=== PATIENT | male | born 2000 | race African-American/Black ===

== ENCOUNTER 2022-09-07 05:42 | Emergency (ER) | payer OTHER, SELFPAY ==
[2022-09-07 05:49] VITALS: BP 130/75; PULSE 89; RESP 16; TEMP 37.3; O2SAT 99; BMI 25.0
--- NOTE | 2022-09-07 06:08 | ED_ITS ---
HPI - URI/Sore Throat General Chief Complaint: Upper Respiratory Symptoms Stated Complaint: sore throat, chills, headaches Time Seen by Provider: 09/07/22 06:00 Source: patient Mode of arrival: Ambulatory History of Present Illness HPI Narrative: Patient is a healthy 22-year-old male who presents with for 5 days of throat pain and fevers. His friend was sick with similar symptoms but his does not seem to be going away. Minimal cough. No abdominal pain nausea or vomiting. It hurts to swallow. He has been taking Aleve and Tylenol. Related Data Previous Rx's Medication Instructions Recorded amoxicillin 500 mg capsule 500 mg PO BID #20 caps 09/07/22 Allergies Allergy/AdvReac Type Severity Reaction Status Date / Time No Known Drug Allergies Allergy Verified 09/07/22 05:59 Review of Systems Review of Systems ROS Unobtainable: All systems reviewed & are unremarkable except as noted in HPI and below Patient History Social History Smoking Status: Never smoker Smoking Status: Never smoker alcohol intake frequency: a few times a month Substance Use Type: does not use Exam Initial Vital Signs Initial Vital Signs: Vital Signs Temperature 99.2 F 09/07/22 05:49 Pulse Rate 89 09/07/22 05:49 Respiratory Rate 16 09/07/22 05:49 Blood Pressure 130/75 09/07/22 05:49 Pulse Oximetry 99 09/07/22 05:49 Oxygen Delivery Method 09/07/22 05:49 GENERAL: Alert 22-year-old male appears to not feel well and in no acute distress. HEENT: Head atraumatic,EOMI, pupils reactive, face symmetric, moist mucous membranes PHARYNX: Erythematous with exudative tonsils no significant uvula swelling or deviation no cervical lymphadenopathy CARDIOVASCULAR: Regular rate and rhythm without murmurs, rubs or gallops. RESPIRATORY: Breath sounds equal bilaterally, no wheezes rales or rhonchi. ABDOMEN: Soft, nontender. Normoactive bowel sounds all 4 quadrants. No guarding or rebound. EXTREMITIES: Normal range of motion, no clubbing or edema. Neurovascularly intact NEUROLOGICAL: Alert and oriented x4. SKIN: Warm, dry, no laceration, no petechiae, no rashes or lesions. Course Orders Ordered: ED Orders 01/26/23 06:05 Covid-19 + FLU A/B + RSV - PCR Stat 09/07/22 06:10 Throat Culture Stat Discontinued Medications Amoxicillin (Amoxicillin 250 Mg Prepack) 1 bottle MISC SEEINSTR ONE Stop: 09/07/22 06:36 Ketorolac Tromethamine (Ketorolac 30 Mg/Ml Vial) 30 mg IM NOW ONE Stop: 09/07/22 06:16 Last Admin: 09/07/22 06:24 Dose: 30 mg Vital Signs Vital signs: Vital Signs - 8 hr 09/07/22 05:49 Temperature 99.2 F Pulse Rate 89 Respiratory Rate 16 Blood Pressure 130/75 Pulse Oximetry 99 Oxygen Delivery Method Room Air MDM - URI/Sore Throat Lab Data Labs: Lab Results 09/07/22 Range/Units 06:05 SARS-CoV-2 (PCR) Negative (Negative) Influenza A (RT-PCR) Flu a negative (NEGATIVE) Influenza B (RT-PCR) Flu b negative (NEGATIVE) RSV (PCR) Negative (Negative) Point of Care Testing Rapid Strep A Positive MDM Narrative Medical decision making narrative: Patient is a healthy 22-year-old male with ongoing throat pain with exudative tonsils. His rapid strep is negative. No evidence of peritonsillar abscess or retropharyngeal abscess. No airway compromise. He is not tachycardic or hypotensive or other signs of sepsis. Low-grade fever of 99.2. Viral panel negative. He is given Toradol in the ED for pain. MDM * differential diagnosis includes but not limited to: Struck her right is virus abscess Connor abscess * Prior records reviewed: no * My lab interpretation: Positive strep * My imaging interpretation: None * Clinical Decision Rules/Scores evaluated: None * Independent discussions with: None * Social Considerations: none * Shared Decision Making: With patient *Disposition: see below, along with detailed discharge instructions that have been reviewed with patient as well as indications for ED re-evaluation and add itional outpatient follow up Discharge Plan Departure Patient Disposition: Home Clinical Impression: Strep pharyngitis Instructions: Strep Throat Activity Restrictions/Additional Instructions: *You have been diagnosed with strep throat *What to do: At this time be sure to stay hydrated drink plenty of fluids including water and Gatorade popsicles. You should start feeling better with antibiotics in about 2-3 days *Continue to take medications as directed Amoxicillin 500 mg twice a day for 10 days *Follow up with your primary care provider in 2-3 days or call [phone] *Return to ER if you should have inability to swallow, worsening pain muffled voice or any new, worsening or concerning symptoms Prescriptions: New amoxicillin 500 mg capsule 500 mg PO BID Qty: 20 0RF Referrals: ProviderTung [Primary Care Provider] - Stand Alone Forms: Patient Portal/API
[2022-09-07] MEDS: KETOROLAC 30 MG/ML VIAL IM (06:24)
[2022-09-07 06:49] LABS: Influenza A - CEPHEID Flu A NEGATIVE (NEGATIVE); Influenza B - CEPHEID Flu B NEGATIVE (NEGATIVE); Respiratory Syncytial Virus Negative (Negative)
[2022-09-07 06:55] LABS: COVID-19 CEPHEID 4-PLEX PCR Negative (Negative)
[2022-09-07 06:59] VITALS: BP 121/74; PULSE 85; RESP 16; O2SAT 99
[2022-09-07] MEDS: AMOXICILLIN 250 MG PREPACK 1 BOTTLE MISC (07:00)
== END 2022-09-07 07:08 | disposition home or self-care (01) ==
PROVIDERS: Emergency Provider Emergency Medicine
DX: J02.0 Streptococcal pharyngitis (principal); Z20.822 Contact with and (suspected) exposure to COVID-19
CPT/HCPCS: 0241U; 87070; 87077; 87147; 87880; 96372; 99283; J1885

== ENCOUNTER 2022-12-18 23:09 | Emergency (ER) | payer OTHER, SELFPAY ==
--- NOTE | 2022-12-18 23:45 | DI.RAD.S_ITS ---
PROCEDURE: XR FOOT RT MIN 3V INDICATIONS: foot/ankle injury TECHNIQUE: 3 views of the foot were acquired. COMPARISON: None. FINDINGS: Bones: No fractures or dislocations. No suspicious bony lesions. Soft tissues: No tibiotalar joint effusion. Achilles tendon appears normal. IMPRESSION: 1. No fracture or dislocation. Dictated by: Jerald Tyler M.D. on 12/19/2022 at 1:21 Approved by: Jearld Tyler M.D. on 12/19/2022 at 1:22
--- NOTE | 2022-12-18 23:45 | DI.RAD.S_ITS ---
PROCEDURE: XR ANKLE RT MIN 3V INDICATIONS: foot/ankle injury TECHNIQUE: 3 views of the ankle were acquired. COMPARISON: None. FINDINGS: Bones: No fractures or dislocations. Ankle mortise is normally aligned. No suspicious bony lesions. Soft tissues: No tibiotalar joint effusion. Achilles tendon appears normal. IMPRESSION: 1. No fracture or dislocation. Dictated by: Jerald Tyler M.D. on 12/19/2022 at 1:21 Approved by: Jerald Tyler M.D. on 12/19/2022 at 1:21
[2022-12-19 00:15] VITALS: BP 122/63; PULSE 69; RESP 18; TEMP 36.8; O2SAT 99
[2022-12-19 01:54] VITALS: BP 128/68; PULSE 73; RESP 16; O2SAT 99
--- NOTE | 2022-12-19 03:53 | ED_ITS ---
HPI - Extremity Injury (Lower) General Chief Complaint: Extremity Injury, Lower Stated Complaint: possible broke rt foot Time Seen by Provider: 12/18/22 23:32 Source: patient Mode of arrival: Family Vehicle History of Present Illness HPI Narrative: 22-year-old male nonsmoker with noncontributory medical history presents for evaluation of a right foot injury suffered earlier today while playing soccer. He states that he was engaged in a tackle with an opponent who kicked the lateral aspect of his right foot extremely hard and he now has pain and swelling with difficulty in ambulation. Denies any jimenez, knee or hip pain. Denies any numbness, tingling or weakness. He denies any fever or chills. He is otherwise well and free of complaint. Related Data Previous Rx's Medication Instructions Recorded amoxicillin 500 mg capsule 500 mg PO BID #20 caps 09/07/22 Allergies Allergy/AdvReac Type Severity Reaction Status Date / Time No Known Drug Allergies Allergy Verified 09/07/22 05:59 Review of Systems Review of Systems Narrative: GENERAL: Denies chills, fatigue, malaise, fever, sweats. HEENT: Denies sinus pain, ear pain, sore throat, difficulty swallowing, dizziness. RESPIRATORY: Denies dyspnea, cough, wheezing, hemoptysis, sputum. CARDIOVASCULAR: Denies chest pain, palpitations, orthopnea, edema, GASTROINTESTINAL: Denies nausea, vomiting, abdominal pain, diarrhea, constipation, melena. : Denies dysuria, frequency, incontinence, hematuria, urinary retention. MUSCULOSKELETAL: See HPI SKIN: Denies rash, skin lesions, or other NEUROLOGIC: Denies weakness, headache, numbness, change in speech, confusion, seizures, incoordination. PSYCHIATRIC: No concerning psychosocial issues. 12 point review of systems is negative except for those stated above Patient History Social History Smoking Status: Never smoker Smoking Status: Never smoker alcohol intake frequency: a few times a month Substance Use Type: does not use Exam Narrative Exam Narrative: GEN: AOx3 and in mild distress EYES: Pupils are equal, round, and reactive to light and accommodation. Extraoccular muscles are intact bilaterally. There is no subconjunctival hemorrhage or exudate. CHEST: Lungs are clear to auscultation bilaterally and free of wheezes, rales, or rhonchi. Heart rate is regular rhythm, there are no murmurs, clicks, rubs, or gallops. There is no chest wall tenderness. ABD: Abdomen is soft and nontender. There is no guarding or rebound. Bowel sounds are normal in all 4 quadrants. There is no mass or organomegaly. EXT: Full range of motion with some pain overlying the lateral foot, closed, isolated and neurovascularly intact SKIN: Warm, pink, and dry. No erythema or rash Initial Vital Signs Initial Vital Signs: Vital Signs Temperature 98.2 F 12/19/22 00:15 Pulse Rate 69 12/19/22 00:15 Respiratory Rate 18 12/19/22 00:15 Blood Pressure 122/63 12/19/22 00:15 Pulse Oximetry 99 12/19/22 00:15 Oxygen Delivery Method Room Air 12/19/22 00:15 Procedures Orthopedic Splinting/Casting Injury #1: Side: right Lower Extremity Injury Location: foot Lower Extremity Immobilizer: post-op shoe Post splinting neuro exam: intact Post splinting vascular exam: intact Placed by: Nursing Course Orders Ordered: ED Orders 12/18/22 23:45 XR ankle RT min 3V Stat XR foot RT min 3V Stat Vital Signs Vital signs: Vital Signs - 8 hr 12/19/22 00:15 12/19/22 01:54 Temperature 98.2 F Pulse Rate 69 73 Respiratory Rate 18 16 Blood Pressure 122/63 128/68 Pulse Oximetry 99 99 Oxygen Delivery Method Room Air Room Air MDM - Extremity Injury (Lower) MDM Narrative Medical decision making narrative: [22] year old patient presents with R foot pain Multiple etiologies for patient's symptoms considered including, but not limited to: Fracture[Versus dislocation versus other] Prior Charts reviewed in our EMR Primary Historian: patient Imaging reviewed: No fx Patient's symptoms improved over duration of stay with above-stated therapies. Findings and discharge diagnosis discussed with patient/family followed by verbalization of understanding Return precautions discussed with patient/family whom verbalize understanding of diagnosis and plan Discharge Plan Departure Patient Disposition: Home Clinical Impression: Contusion of foot Instructions: DI for Contusion Activity Restrictions/Additional Instructions: *You have been diagnosed with [right foot contusion. As we discussed the x-rays of foot and ankle are reassuring and there is no evidence of fracture or dislocation.] *What to do: *Please continue to take your regular medications as directed. [ ] New medication prescriptions sent to your pharmacy: [ ] [ ] New medication written as a paper prescription [ ] No new medications given *Please follow up with your primary care provider in 2-3 days, call for an appointment. Let them know you were seen in the Emergency Department and that we ask that you be seen in follow up. We will electronically transmit a record of today's note if your PCP is in our system *If you do not have a primary care provider please contact the [facility] Resource line at [phone]. They will ask some questions about your medical history and help get you set up with a doctor in the community. *Return to Emergency Department if you should have any new, worsening or concerning symptoms, such as [fever greater than 101 F, shaking chills, worsening pain, persistent vomiting or other bothersome symptoms] Prescriptions: No Action amoxicillin 500 mg capsule 500 mg PO BID Qty: 20 0RF Referrals: ProviderTung [Primary Care Provider] - Stand Alone Forms: Patient Portal/API, Work Release Note
== END 2022-12-19 01:55 | disposition home or self-care (01) ==
PROVIDERS: Emergency Provider Emergency Medicine
DX: S90.31XA Contusion of right foot, initial encounter (principal); W50.1XXA Accidental kick by another person, initial encounter; Y93.66 Activity, soccer
CPT/HCPCS: 73610; 73630; 99281; 99283

== ENCOUNTER 2023-06-03 22:28 | Emergency (ER) | payer OTHER, SELFPAY ==
[2023-06-03 22:35] VITALS: PULSE 69; O2SAT 100
[2023-06-03 22:36] VITALS: BP 135/82; PULSE 60; RESP 16; TEMP 37.5; O2SAT 98; BMI 26.6
--- NOTE | 2023-06-03 22:50 | DI.RAD.S_ITS ---
PROCEDURE: XR CHEST 2V INDICATIONS: chest pain TECHNIQUE: 2 views of the chest were acquired. COMPARISON: None. FINDINGS: Surgical changes and devices: None. Lungs and pleura: Lungs are clear. No pleural effusions or pneumothorax. Mediastinum: Mediastinal contours are normal. Heart size is normal. Bones and chest wall: No suspicious bony abnormalities. Soft tissues appear unremarkable. IMPRESSION: No acute cardiopulmonary abnormality is seen. Dictated by: Bonita Wills M.D. on 06/04/2023 at 0:36 Approved by: Bonita Wills M.D. on 06/04/2023 at 0:36
--- NOTE | 2023-06-03 22:54 | ED.CHESTPAIN ---
HPI - Chest Pain General Chief Complaint: Chest Pain Stated Complaint: Chest pain Time Seen by Provider: 06/03/23 22:54 Source: patient Mode of arrival: Ambulatory Limitations: no limitations History of Present Illness HPI narrative: This is a 23-year-old male who comes in with complaint of left-sided chest pain he is had 3 episodes daily for the past 3 days he states ball in the left side over the breast region. He states 5 seconds on Sunday, 12 seconds to times on Sunday while playing football and today had about a 2nd episode while lying on the bed. Nothing seems to bring it on or make it worse. He is not had similar symptoms in the past he denies any trauma or injury. He states no redness or skin changes. States it does not radiate it is very localized but he can not reproduce it with palpation. No shortness of breath, no fevers or chills, no cold cough or congestion. No nausea or vomiting, no issues with bowel movements or urination. No swelling of extremities. No skin changes. Patient states no medical history, no daily medications. No prior surgeries. No known drug allergies. Does not use tobacco, drinks alcohol on the weekends 1 or 2 beers at the most. No recreational or IV drugs. Denies any cardiac family history, no pulmonary embolic history, no vascular history, no sudden cardiac . Patient did relate that he noticed a small bump under his right nipple that has been present for 4 or 5 months it got painful, the pain has resolved he never had discharge redness or skin changes but has not gone away. Related Data Previous Rx's Medication Instructions Recorded amoxicillin 500 mg capsule 500 mg PO BID #20 caps 09/07/22 Allergies Allergy/AdvReac Type Severity Reaction Status Date / Time No Known Drug Allergies Allergy Verified 09/07/22 05:59 Review of Systems Review of Systems ROS Unobtainable: All systems reviewed & are unremarkable except as noted in HPI and below Patient History Social History Smoking Status: Never smoker Smoking Status: Never smoker alcohol intake frequency: a few times a week Alcohol type: beer, wine and hard liquor Substance Use Type: does not use Exam Narrative Exam Narrative: GENERAL: Alert and oriented x three, well-appearing male in no acute distress. HEENT: Head normocephalic, atraumatic, EOMI, pupils reactive, face symmetric, moist mucous membranes NECK: Supple, full range of motion CARDIOVASCULAR: Regular rate and rhythm without murmurs, rubs or gallops. No reproducible chest pain. No rash, erythema or other skin changes. On exam patient does have small nodular area underneath the right areola at the 8 o'clock position which is nontender, fairly soft but does have some fullness to it. There is no discharge, there is no obvious skin changes it is nontender. I do not palpate anything similar over the left areola. RESPIRATORY: Breath sounds equal bilaterally, no wheezes rales or rhonchi. No tachypnea, no accessory muscle use. ABDOMEN: Soft, nontender. Normoactive bowel sounds all 4 quadrants. No guarding or rebound, rigidity, no mass : No CVA tenderness EXTREMITIES: Normal range of motion, no clubbing or edema. Neurovascularly intact. 2+ pulses upper and lower extremities. NEUROLOGICAL: Cranial nerves II through XII grossly intact. Moving all extremities SKIN: Warm, dry, no petechiae, no rashes or lesions. Initial Vital Signs Initial Vital Signs: Vital Signs Pulse Rate 69 06/03/23 22:35 Pulse Oximetry 100 06/03/23 22:35 Scores HEART Score Heart Score history: Slightly Suspicious Heart Score EKG: Normal Heart Score Age: < 45 years old Heart Score risk factors: No known risk factors Heart Score troponin: < or = to normal limit Heart Score Total: 0 PERC Score Age greater than or equal to 50 years: No Heart rate greater than or equal to 100 bpm: No Room Air O2 Sat less than 95%: No Unilateral leg swelling: No Recent trauma or surgery: No Hemoptysis: No Prior PE or DVT: No Hormone Use: No Total PERC Score: 0 Course Orders Ordered: ED Orders 06/03/23 22:35 Complete Blood Count AUTO DIFF Stat Comprehensive Metabolic Panel Stat Lipase Stat Magnesium Stat PTT Partial Thromboplastin Krzysztof Stat Prothrombin Time INR Stat Troponin & CK Cardiac Panel Stat 06/03/23 22:50 XR chest 2V Stat 06/04/23 00:32 Trop I [Troponin I] Stat Discontinued Medications Aspirin (Aspirin 81 Mg Chew Tab) 324 mg PO NOW ONE Stop: 06/03/23 22:51 Vital Signs Vital signs: Vital Signs - 8 hr 06/03/23 22:35 06/03/23 22:36 06/03/23 23:00 Temperature 99.5 F Pulse Rate 69 60 64 Respiratory Rate 16 Blood Pressure 135/82 Pulse Oximetry 100 98 99 Oxygen Delivery Method Room Air 06/03/23 23:01 06/03/23 23:01 06/03/23 23:11 Temperature Pulse Rate 59 L Respiratory Rate Blood Pressure 138/87 148/77 H Pulse Oximetry 99 Oxygen Delivery Method 06/03/23 23:11 06/03/23 23:30 06/03/23 23:30 Temperature Pulse Rate 59 L 65 Respiratory Rate Blood Pressure 134/66 Pulse Oximetry 98 99 Oxygen Delivery Method 06/04/23 00:00 06/04/23 00:00 06/04/23 00:30 Temperature Pulse Rate 60 57 L Respiratory Rate Blood Pressure 130/64 Pulse Oximetry 99 99 Oxygen Delivery Method 06/04/23 01:00 Temperature Pulse Rate 47 L Respiratory Rate 16 Blood Pressure Pulse Oximetry 98 Oxygen Delivery Method Room Air MDM - Chest Pain Lab Data 06/03/23 22:35 06/03/23 22:35 Labs: Lab Results 06/03/23 06/04/23 Range/Units 22:35 00:32 WBC 8.1 (4.5-11.0) X10^3/uL RBC 6.33 H (4.5-5.9) X10^6/uL Hgb 12.5 L (13.5-17.5) g/dL Hct 38.7 L (41-53) % MCV 61.1 L (80-100) fL MCH 19.8 L (26-34) PG MCHC 32.4 (30-36) % RDW 17.2 H (11.6-14.8) % Plt Count 221 (150-400) X10^3/uL Neut % (Auto) 50.8 (50-75) % Lymph % (Auto) 39.6 (25-40) % [facility] % (Auto) 7.0 (3-14) % Eos % (Auto) 2.3 (2-4) % Baso % (Auto) 0.3 (0-2) % Neut # (Auto) 4100 (6792-7608) /uL Lymph # (Auto) 3200 (5984-4719) /uL [facility] # (Auto) 600 (0-900) /uL Eos # (Auto) 200 (0-450) /uL Baso # (Auto) 0 (0-100) /uL RBC Morphology See below Anisocytosis 2+ H Microcytosis 2+ H PT 12.7 (10.1-12.7) SECONDS INR 1.1 (0.9-1.3) APTT 31 (26-36) SECONDS Sodium 138 (137-145) mmol/L Potassium 3.5 (3.4-5.1) mmol/L Chloride 101 (98-107) mmol/L Carbon Dioxide 29 (22-32) mmol/L BUN 17 (9-20) mg/dL Creatinine 0.89 (0.66-1.25) mg/dL Estimated GFR > 60 (>60) mL/min BUN/Creatinine Ratio 19.1 (6-22) Glucose 108 H (70-100) mg/dL Calcium 9.5 (8.4-10.2) mg/dL Magnesium 2.0 (1.6-2.3) mg/dL Total Bilirubin 0.7 (0.2-1.3) mg/dL AST 25 (17-59) IU/L ALT 19 (<50) IU/L Alkaline Phosphatase 77 (38-126) U/L Total Creatine Kinase 189 H (55-170) U/L Troponin I < 0.012 < 0.012 (0.01-0.034) ng/mL Total Protein 7.2 (6.3-8.2) g/dL Albumin 4.2 (3.5-5.0) g/dL Globulin 3.0 (1.7-4.1) g/dL Albumin/Globulin Ratio 1.4 (1.0-2.8) Lipase 207 (23-300) U/L ECG Data Attestation: I personally reviewed and interpreted this ECG as follows: Prior ECG tracings: not available for review Interpretation: Sinus rhythm rate of 70 [place] 192 QRS of [address] No acute [address] changes appreciated. No priors for comparison. MDM Narrative Medical decision making narrative: Healthy 23-year-old male with no past medical history, no high-risk factors or family history with several seconds left-sided chest pain daily for the past 3 days. Patient's vitals are appropriate no acute EKG changes, chest x-ray and lab work show microcytic anemia with a hemoglobin of 12, normal white count and platelets. Coags are negative, electrolytes renal function LFTs are appropriate total CK is 189 troponins negative x2 normal protein and glucose of 108. Chest x-ray shows no acute change. Discussed patient with findings he HEART score and PERC are negative. Feel patient is appropriate for discharge. Did review with patient to follow-up unknown if he has any history of anemia he is hemodynamically stable. Reviewed can be secondary to iron deficiency, versus thalassemia or other causes. Copy of labs given to patient to share with his physician for follow-up and workup. Patient does note that he is had area of fullness or nodule under the right nipple which is the opposite side of his symptoms today for about 4 5 months ago very painful but never had any discharge no skin changes. It is no longer painful but he states it has not gone away. On palpation I do feel a small nodular area under the right nipple. No discharge is easily expressed. Do not palpate anything similar on the left. Discussed with patient that is not resolving or going away he should follow up for evaluation. He does not have any high-risk family history but probably benefit from ultrasound of the area if it does not resolve shortly. Discharge Plan Departure Patient Disposition: Home Clinical Impression: Atypical chest pain, Microcytic anemia Instructions: DI for Atypical Chest Pain Activity Restrictions/Additional Instructions: If you have a persistent nodule under the right nipple that does not resolve I would recommend follow-up with your primary care provider for possible ultrasound of the area if it persists. Your labs do show a mild anemia that is microcytic, follow up with your physician, they may check an iron panel and do some additional labs. Please return for new or worsening symptoms, persistent or worsening chest pain, shortness of breath, lightheadedness or passing out, vomiting, new swelling in your extremities or other new or concerning changes Prescriptions: No Action amoxicillin 500 mg capsule 500 mg PO BID Qty: 20 0RF Referrals: ProviderTung [Primary Care Provider] - Stand Alone Forms: Patient Portal/API
[2023-06-03 23:00] VITALS: PULSE 64; O2SAT 99
[2023-06-03 23:00] LABS: INR 1.1 (0.9-1.3); Prothrombin Time 12.7 SECONDS (10.1-12.7)
[2023-06-03 23:01] VITALS: BP 138/87; PULSE 59; O2SAT 99
[2023-06-03 23:02] LABS: PTT Partial Thromboplastin Tim 31 SECONDS (26-36)
[2023-06-03 23:05] LABS: Alanine Aminotransferase 19 IU/L (<50); Albumin 4.2 g/dL (3.5-5.0); Albumin Globulin Ratio 1.4 (1.0-2.8); Alkaline Phosphatase 77 U/L (38-126); Aspartate Aminotransferase 25 IU/L (17-59); BUN Creatinine Ratio 19.1 (6-22); Bilirubin Total 0.7 mg/dL (0.2-1.3); Blood Urea Nitrogen 17 mg/dL (9-20); Calcium 9.5 mg/dL (8.4-10.2); Carbon Dioxide 29 mmol/L (22-32); Chloride 101 mmol/L (98-107); Creatine Kinase 189 U/L (55-170); Estimated Glomerular Filt Rate > 60 mL/min (>60); Glucose 108 mg/dL (70-100); HEMOLYSIS < 15 (0-50); Lipase 207 U/L (23-300); Potassium 3.5 mmol/L (3.4-5.1); Sodium 138 mmol/L (137-145); Total Protein 7.2 g/dL (6.3-8.2)
[2023-06-03 23:08] LABS: Basophils Absolute Auto 0 /uL (0-100); Basophils Percent Auto 0.3 % (0-2); Eosinophils Absolute Auto 200 /uL (0-450); Eosinophils Percent Auto 2.3 % (2-4); Hematocrit 38.7 % (41-53); Hemoglobin 12.5 g/dL (13.5-17.5); Lymphocytes Absolute Auto 3200 /uL (1100-4500); Lymphocytes Percent Auto 39.6 % (25-40); Mean Corpuscular HGB Conc 32.4 % (30-36); Mean Corpuscular Hemoglobin 19.8 PG (26-34); Mean Corpuscular Volume 61.1 fL (80-100); Monocytes Absolute Auto 600 /uL (0-900); Neutrophils Absolute Auto 4100 /uL (1500-7000); Neutrophils Percent Auto 50.8 % (50-75); Platelet Count 221 X10^3/uL (150-400); Red Blood Cell Count 6.33 X10^6/uL (4.5-5.9); Red Cell Distribution Width 17.2 % (11.6-14.8); White Blood Cell Count 8.1 X10^3/uL (4.5-11.0)
[2023-06-03 23:09] LABS: Add Manual Diff / Slide Review SLIDE REVIEW
[2023-06-03 23:11] VITALS: BP 148/77; PULSE 59; O2SAT 98
[2023-06-03 23:16] LABS: Troponin I < 0.012 ng/mL (0.01-0.034)
[2023-06-03 23:22] LABS: Anisocytosis 2+; Microcytosis 2+
[2023-06-03 23:30] VITALS: BP 134/66; PULSE 65; O2SAT 99
[2023-06-04] VITALS: BP 130/64; PULSE 60; O2SAT 99
[2023-06-04 00:30] VITALS: PULSE 57; O2SAT 99
[2023-06-04 01:00] VITALS: PULSE 47; RESP 16; O2SAT 98
[2023-06-04 01:02] LABS: Troponin I < 0.012 ng/mL (0.01-0.034)
== END 2023-06-04 01:24 | disposition home or self-care (01) ==
PROVIDERS: Emergency Provider Emergency Medicine
DX: R07.89 Other chest pain (principal); D50.9 Iron deficiency anemia, unspecified
CPT/HCPCS: 36415; 71046; 80053; 82550; 83690; 83735; 84484; 85025; 85610; 85730; 93005; 93010; 99281; 99284